=== PATIENT | female | born 1975 | race Caucasian/White ===

== ENCOUNTER 2021-04-29 20:29 | Emergency (ER) | payer BC ==
[~2021-04-29] VITALS: Ht 162.6 cm; Wt 61.2 kg
[2021-04-29] MEDS ORDERED: LANTUS100 UNITS/ SUB-Q (20:46)
[2021-04-29] MEDS ORDERED: NOVOLOG100 UNIT/1 SUB-Q (20:48)
[2021-04-29] MEDS ORDERED: METFORMIN HCL1000 M1 PO (20:49)
[2021-04-29] MEDS ORDERED: ONDANSETRON ODT8 MG PO (20:52)
== END 2021-04-29 22:20 | disposition home or self-care (01) ==
LOC: ED 20:29
DX: A08.4 Viral intestinal infection, unspecified (principal); E11.9 Type 2 diabetes mellitus without complications; Z88.8 Allergy status to other drugs, medicaments and biological substances; Z88.5 Allergy status to narcotic agent; Z79.4 Long term (current) use of insulin; Z79.84 Long term (current) use of oral hypoglycemic drugs
CPT/HCPCS: 96374; 99284-25; A9270; J2405; J7030